=== PATIENT | female | born 1965 | race Caucasian/White ===

== ENCOUNTER 2019-08-27 23:16 | Emergency (ER) | payer BC, OTHER ==
[2019-08-27] MEDS ORDERED: Bacitracin/Neomycin/Polymyxin B Oint 0.9 GM U/D Packet TOP ONE (23:21)
--- NOTE | 2019-08-27 23:21 | EDM.PDOC ---
ED HPI GENERAL MEDICAL PROBLEM - General Chief Complaint: Laceration Stated Complaint: laceration Time Seen by Provider: 08/27/19 23:16 Source of Information: Reports: Patient, Family (), Old Records ([facility] chart/EMR) History Limitations: Reports: No Limitations - History of Present Illness INITIAL COMMENTS - FREE TEXT/NARRATIVE: The patient was brought to the emergency room by her via private automobile for evaluation of a Workmen's Compensation injury, which occurred at 22:30 hours. The patient did rinse out the laceration site and apply dressing prior to arrival. Note that she has injured this digit in the past as below. She was trying to straighten a forklift chair when she excellently caught her finger between the chair and the forklift, however no history of foreign body, paresthesias, neurological deficits, or other complaints or injuries. No recent history of abdominal pain, heartburn, nausea, diarrhea, melena, gross hematochezia, or any food intolerance, including fatty foods, etc.. The patient also denies any recent fever, wheezing, dyspnea, etc. however patient is just getting over a recent probable viral bronchitis. Onset: Today, Sudden Onset Date: 08/27/19 Onset Time: 22:30 Duration: Constant Location: Reports: Upper Extremity, Left. Denies: Head, Face, Neck, Chest, Abdomen, Back, Radiates to Quality: Reports: Same as Previous Episode, Sharp, Throbbing Severity: Moderate Improves with: Reports: Rest Worsens with: Reports: Movement Context: Reports: Trauma (As above) Associated Symptoms: Reports: Cough. 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 Pain Score (Numeric/FACES): 7 - Related Data Allergies Allergy/AdvReac Type Severity Reaction Status Date / Time ciprofloxacin [From Cipro] Allergy Hives Verified 08/27/19 23:28 orange blossoms Allergy Airway Uncoded 08/27/19 23:28 Tightness Home Meds: Home Meds Amoxicillin/Potassium Clav [Augmentin 875-125 Tablet] 1 each PO BIDMEALS #20 tablet 08/28/19 [Rx] Lactobacillus Acidophilus [Probiotic] 1 each PO BEDTIME 08/28/19 [History] atorvaSTATin Calcium [Atorvastatin Calcium] 1 tab PO BEDTIME 08/28/19 [History] Past Medical History HEENT History: Reports: Allergic Rhinitis Cardiovascular History: Reports: High Cholesterol Respiratory History: Reports: Asthma Gastrointestinal History: Reports: Fatty Liver, GERD, Hiatal Hernia, Other (See Below) Other Gastrointestinal History: Large hiatal hernia requiring surgery as below. Genitourinary History: Reports: Renal Calculus, Other (See Below) Other Genitourinary History: Recurrent bilateral urolithiasis with spontaneous passages and no surgeries required. TREE CARE FOREMAN History: Reports: Dysfunctional Uterine Bleeding, , Spontaneous : 9 Para: 4 Musculoskeletal History: Reports: Arthritis, Fracture, Osteoarthritis, Other ( See Below) Other Musculoskeletal History: Tuft fracture of digit #5 of the left hand on 11/09 with subsequent probable similar fracture of the right little finger on the same day, however the patient was not evaluated for this second fracture. Endocrine/Metabolic History: Reports: Other (See Below) Other Endocrine/Metabolic History: Benign Right adrenal adenoma by CT scan. - Past Surgical History GI Surgical History: Reports: Appendectomy, Arben Fundoplication, Other (See Below) Other GI Surgeries/Procedures: Arben fundoplication in March 2019. Appendectomy in July 2013. Female Surgical History: Reports: Endometrial Ablation, Other (See Below) Other Female Surgeries/Procedures: Endometrial ablation in 2010. - Past Imaging History Past Imaging History: Reports: CAT Scan (CT of the abdomen and pelvis using stone protocol on 12/21/[address] scan of the abdomen and pelvis on .), Mammogram (11/15/10.), MRI (Abdomen on 08/20/13.), Ultrasound (Pelvic ultrasounds on 07/07/11 and 11/15/10.) Social & Family History - Tobacco Use Smoking Status *Q: Current Every Day Smoker Tobacco Use Within Last Twelve Months: Cigarettes Years of Tobacco use: 38 Packs/Tins Daily: 1 Packs/Tins Daily Comment: Started smoking at age 16. Used Tobacco, but Quit: No Smoking Cessation Information Provided To Patient: Yes Second Hand Smoke Exposure: Yes Source of Second Hand Smoke Exposure: smokes. 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 ED EXAM, SKIN/RASH Exam: See Below Exam Limited By: No Limitations General Appearance: Alert, WD/WN, No Apparent Distress Head: Atraumatic, Normocephalic Neck: Normal Inspection, Supple, Non-Tender, Full Range of Motion. No: Lymphadenopathy (L), Lymphadenopathy (R), Thyromegaly Respiratory/Chest: No Respiratory Distress, Lungs Clear, Normal Breath Sounds, No Accessory Muscle Use, Chest Non-Tender. No: Pleural Rub, Retractions Cardiovascular: Normal Peripheral Pulses, Regular Rate, Rhythm, No Edema, No Gallop, No JVD, No Murmur, No Rub. No: Gallop/S3, Gallop/S4, Friction Rub Peripheral Pulses: 2+: Radial (R), Femoral (L) GI/Abdominal: Normal Bowel Sounds, Soft, Non-Tender, No Organomegaly, No Distention, No Abnormal Bruit, No Mass, Pelvis Stable. No: Guarding Back Exam: Normal Inspection, Full Range of Motion. No: CVA Tenderness (L), CVA Tenderness (R), Muscle Spasm Extremities: Normal Range of Motion, Non-Tender (Moderate tenderness over laceration site.), Normal Capillary Refill, Other (Mild deformity of the distal phalanx of digit #5 of the left hand with no joint involvement. Note 1.5 cm irregular laceration over the distal phalanx of digit #5 of the left hand with nail involvement. No foreign bodies noted.) Neurological: Alert, Oriented, CN II-XII Intact, Normal Cognition, Normal Gait, No Motor/Sensory Deficits Psychiatric: Normal Affect, Normal Mood Skin: Tattoo(s), Wound/Incision (As above) Location, Skin: Upper Extremity, Left Associated features: Tenderness. No: Warmth Lymphatic: No Adenopathy ED SKIN PROCEDURES - Laceration/Wound Repair Left Distal Digit - 5th (Baby) Appearance: Subcutaneous, Stellate, Irregular, Mildly Contaminated Distal NVT: Neuro & Vascular Intact, No Tendon Injury Anesthetic Type: Local Local Anesthesia - Lidocaine (Xylocaine): 1% Plain Local Anesthetic Volume: Other (7 mL) Skin Prep: Providone-Iodine (Betadine), Other (Surgical scrub brush) Saline Irrigation (cc's): 0 Exploration/Debridement/Repair: Wound Explored, In a Bloodless Field, Explored to Base, No Foreign Material Found, Multiple Flaps Aligned Closed with: Sutures Lac/Wound length In cm: 1.5 Suture Size: 4-0 # of Sutures: 4 Suture Type: Nylon, Interrupted, Simple Drain Placement: No Sterile Dressing Applied: Nurse Tetanus Status Addressed: Yes Complications: No Progress/Comments: Note secondary to nail involvement total nail removal was conducted with local anesthesia prior to laceration. Course - Vital Signs Last Recorded V/S: Last Vital Signs Temp 36.9 C 08/27/19 23:17 Pulse 82 08/27/19 23:17 Resp 20 08/27/19 23:17 BP 116/51 L 08/27/19 23:17 Pulse Ox 95 08/27/19 23:17 Vital Signs - 24 hr 08/27/19 23:17 Temperature [ 36.9 C Temporal] Pulse, 82 Peripheral [ Pulse Oximetry] Respiratory 20 Rate Blood Pressure 116/51 L [Right Upper Arm] O2 Sat by Pulse 95 Oximetry - Orders/Labs/Meds Orders: Active Orders 24 hr Category Date Time Status Vaccines to be Administered [RC] PER UNIT ROUTINE Care 08/27/19 23:28 Ordered Fingers Fifth Digit Lt F4 [CR] Stat Exams 08/27/19 23:21 Ordered Durable Medical Equipment for Discharge [DME for Oth 08/28/19 00:44 Ordered Discharge] [COMM] Routine Obtain Past Medical Record [OM.PC] Routine Oth 08/27/19 23:21 Active Labs: None Meds: Medications Discontinued Medications Generic Name Dose Route Start Last Admin Trade Name Freq PRN Reason Stop Dose Admin Amoxicillin/Clavulanate Potassium 1 tab 08/28/19 00:10 08/28/19 00:21 Augmentin 875 Mg/125 Mg PO 08/28/19 00:11 1 tab ONETIME ONE Administration Diphtheria/Tetanus/Acell Pertussis 0.5 ml 08/27/19 23:27 08/27/19 23:38 Adacel IM 08/27/19 23:28 0.5 ml .ONCE ONE Administration Lidocaine HCl 5 ml 08/27/19 23:21 08/27/19 23:31 Xylocaine-Mpf 1% INJECT 08/27/19 23:22 5 ml ONETIME ONE Administration Lidocaine HCl 5 ml 08/27/19 23:29 08/27/19 23:32 Xylocaine-Mpf 1% INJECT 08/27/19 23:30 5 ml ONETIME ONE Administration Lidocaine HCl Confirm 08/27/19 23:35 08/27/19 23:38 Xylocaine-Mpf 1% Administered 08/27/19 23:36 Not Given Dose 10 ml .ROUTE .STK-MED ONE Neomycin/Polymyxin/Bacitracin 1 each 08/27/19 23:21 08/27/19 23:31 Triple Antibiotic Oint TOP 08/27/19 23:22 1 each ONETIME ONE Administration - Radiology Interpretation Free Text/Narrative:: X-rays of digit #5 of the left hand, 3 views, were compared to previous x-rays from 02/10/12. Returned comminuted tuft fracture with some angulation with additional soft tissue injury noted but no foreign body. No joint involvement. Departure - Departure Time of Disposition: 00:40 Disposition: Home, Self-Care 01 Condition: Good Clinical Impression: Laceration, Tobacco abuse counseling, Open fracture of tuft of distal phalanx of finger Osteoarthritis Qualifiers: Osteoarthritis location: multiple joints Osteoarthritis type: primary Qualified Code(s): M15.0 - Primary generalized (osteo)arthritis - Discharge Information *PRESCRIPTION DRUG MONITORING PROGRAM REVIEWED*: Not Applicable *COPY OF PRESCRIPTION DRUG MONITORING REPORT IN PATIENT ARABELLA: Not Applicable Prescriptions: Amoxicillin/Potassium Clav [Augmentin 875-125 Tablet] 1 each PO BIDMEALS #20 tablet Instructions: Steps to Quit Smoking, [id number], Health Risks of Smoking, Amoxicillin; Clavulanic Acid tablets, Finger Fracture, Adult, [id number], Laceration Care, Adult, [id number], Stitches, Tobi, or Adhesive Wound Closure, [id number] Referrals: Singh Noe PA-C [Primary Care Provider] - Forms: ED Department Discharge Additional Instructions: 1. Followup with your regular provider in 10-14 days as directed for reevaluation, x-rays out of your left fifth finger, and suture removal. Bring these discharge instructions with you to that visit. 2. Tylenol 650 mg by mouth every 4 hours and/or OTC ibuprofen 2-3 tabs by mouth every 6 hours with food as directed./needed. You may stagger these medications for 48-72 hours only, which essentially means that you are receiving a pain medication about every 2 hours. 3. Antibacterial soap wash/soak with subsequent antibacterial dressing such as Neosporin, etc. as directed 2 times per day until the wound or laceration site completely heals. Keep the area clean and dry with activity restrictions as discussed. Never use hydrogen peroxide for wound care. 4. Activity restrictions as discussed 5. Work excuse- See Form 6. Stop all tobacco use MONISHA as directed/per provided information and consider contacting Quit LIne, etc.. 7. Immediately after this visit verify that your cellular telephone's voicemail has been activated and is empty. Also verify that your home telephone 's answering machine is operating properly and has space to receive messages. Note that it is sometimes necessary for us to be able to contact you at a later date to discuss your medical care. 8. Please remember that we are ALWAYS here for you and want to answer any questions you may have. Feel free to call the hospital any time and we call you back MONISHA. 9. Wear finger splint at all times with exception of wound care and bathing until otherwise directed by your regular provider. Sepsis Event Note - Focused Exam Vital Signs: Vital Signs Temp Pulse Resp BP Pulse Ox 08/27/19 23:17 36.9 C 82 20 116/51 L 95 Date Exam was Performed: 08/28/19 Time Exam was Performed: 00:45 - Problem List & Annotations (1) Open fracture of tuft of distal phalanx of finger SNOMED Code(s): 600971337 Code(s): S62.639B - DISP FX OF DISTAL PHALANX OF UNSP FINGER, INIT FOR OPN FX Status: Acute Priority: High Onset Date: 08/27/19 Annotation/Comment: : Open tuft fracture of digit #5 of the left hand with patient provided a finger splint which will be started tomorrow after her next wound care. [place] work excuse and Workmen's Compensation forms were completed. Close follow-up by regular provider. Note previous fracture in the same location on 02/10/12. (2) Laceration SNOMED Code(s): 070951235 Code(s): QCL4738 - Status: Acute Priority: High Onset Date: 08/27/19 Annotation/Comment:: Good results with laceration repair as above. Neosporin tube gauze dressing placed by the nurse. Wound care and activity restrictions were discussed. Last TDAP on 02/10/12 was confirmed by the emergency room nurse thru [facility]UL[facility]. DTaP given in the emergency room. She was also encouraged to get her yearly influenza booster MONISHA. (3) Osteoarthritis SNOMED Code(s): 363661642 Code(s): M19.90 - UNSPECIFIED OSTEOARTHRITIS, UNSPECIFIED SITE Status: Chronic Priority: Medium Annotation/Comment:: Otherwise stable by history. Qualifiers: Osteoarthritis location: multiple joints Osteoarthritis type: primary Qualified Code(s): M15.0 - Primary generalized (osteo)arthritis (4) Tobacco abuse counseling SNOMED Code(s): 041991468, 385642814, 803790976 Code(s): Z71.6 - TOBACCO ABUSE COUNSELING Status: Chronic Priority: Medium Annotation/Comment:: Patient and his were strongly encouraged to discontinue smoking MONISHA. They already have information concerning the Quit- Line. - Problem List Review Problem List Initiated/Reviewed/Updated: Yes - My Orders Last 24 Hours: My Active Orders 08/27/19 23:21 Fingers Fifth Digit Lt F4 [CR] Stat Obtain Past Medical Record [OM.PC] Routine 08/27/19 23:28 Vaccines to be Administered [RC] PER UNIT ROUTINE 08/28/19 00:44 Durable Medical Equipment for Discharge [DME for Discharge] [COMM] Routine - Assessment/Plan Last 24 Hours: My Active Orders 08/27/19 23:21 Fingers Fifth Digit Lt F4 [CR] Stat Obtain Past Medical Record [OM.PC] Routine 08/27/19 23:28 Vaccines to be Administered [RC] PER UNIT ROUTINE 08/28/19 00:44 Durable Medical Equipment for Discharge [DME for Discharge] [COMM] Routine Assessment:: As above Plan: As above. Extensive precautions were given to the patient and her , who are in agreement with the treatment plan. See Patient Instructions for further treatment and plan.
[2019-08-27] MEDS ORDERED: Diphtheria,Pertussis(Acell),Tetanus Vaccine 0.5 ML SDV IM ONE (23:27)
[2019-08-28] MEDS ORDERED: Amoxicillin/Clavulanate K 875-125 MG Tab PO ONE (00:10)
== END 2019-08-28 00:35 | disposition home or self-care (01) ==
LOC: LL.ED 23:16
DX: S62.637B Displaced fracture of distal phalanx of left little finger, initial encounter for open fracture (principal); S61.217A Laceration without foreign body of left little finger without damage to nail, initial encounter; M15.0 Primary generalized (osteo)arthritis; E78.00 Pure hypercholesterolemia, unspecified; F17.210 Nicotine dependence, cigarettes, uncomplicated; Z71.6 Tobacco abuse counseling; Z88.1 Allergy status to other antibiotic agents; Z91.048 Other nonmedicinal substance allergy status; Z79.899 Other long term (current) drug therapy; W24.0XXA Contact with lifting devices, not elsewhere classified, initial encounter; Y93.89 Activity, other specified; Y92.89 Other specified places as the place of occurrence of the external cause; Y99.0 Civilian activity done for income or pay
CPT/HCPCS: 11730; 12001; 73140-F4; 90715; 99283-25; A9270-GY; G0008; J2001